=== PATIENT | male | born 1940 | race Caucasian/White ===

== ENCOUNTER 2018-03-20 08:45 | Inpatient (IN) | payer OTHER ==
[2018-03-08 08:52] LABS: HEMATOCRIT 43.5 % (42.0-52.0); HEMOGLOBIN 14.6 gm/dL (14.0-18.0); MCH 29.6 pg (26.0-34.0); MCHC 33.5 g/dL (28.0-37.0); MCV 88.4 fL (80.0-100.0); MPV 8.5 fl. (7.2-11.1); RBC 4.92 mil/uL (4.50-6.00); RDW-CV 13.9 % (10.5-14.5); WBC 8.5 thou/uL (4.0-11.0)
[2018-03-08 09:11] LABS: INR 1.1; PROTIME 10.4 Seconds (9.20-11.50)
[2018-03-08 09:12] LABS: CALCIUM 9.8 mg/dL (8.5-10.1); POTASSIUM 3.9 mmol/L (3.5-5.1); TOTAL BILIRUBIN 0.4 mg/dL (<0.1-1.0); TOTAL PROTEIN 7.7 g/dL (6.4-8.2)
[2018-03-08 10:14] LABS: URINE BILIRUBIN NEGATIVE (Negative); URINE BLOOD NEGATIVE (Negative); URINE CLARITY CLEAR; URINE COLOR YELLOW; URINE GLUCOSE-RANDOM NEGATIVE (Negative); URINE KETONES NEGATIVE (Negative); URINE LEUKOCYTES-REFLEX NEGATIVE (Negative); URINE NITRITE-REFLEX NEGATIVE (Negative); URINE PROTEIN NEGATIVE (Negative); URINE SPECIFIC GRAVITY 1.025 (1.005-1.030); URINE UROBILINOGEN 0.2 E.U./dl (0.2-1.0)
--- NOTE | 2018-03-08 16:35 | EKG ---
[place] [address] ELECTROCARDIOGRAM REPORT Name: MAMIE HOYOS Room: PRE IN ..#: [id number] Admission: Attend Phys: Bennett Gonzalez Discharge: Date of : 38 Report #: [id number] THIS REPORT FOR: //name// [facility] Test Date: 2018-03-08 Test Time: 09:07:05 Pat Name: MAMIE HOYOS Department: Room: Gender: M Manager Health: : 1940 Requested By: Ryan Amaral Order Number: [id number] Reading MD: Leonel Wolfe Measurements Intervals [place] Rate: 68 P: 77 KS: 208 QRS: -37 QRSD: 107 T: QT: 402 QTc: 428 Interpretive Statements Sinus rhythm Left axis deviation Borderline repolarization abnormality No previous ECG available for comparison Electronically Signed On 03-08-2018 16:35:22 CDT by Leonel Wolfe [email or web address] <ELECTRONICALLY SIGNED> By: Leonel Wolfe MD, [facility] 03/08/18 1635 0907 0907 Leonel Wolfe MD, FACC /EPI
[~2018-03-20] VITALS: Ht 185.4 cm; Wt 106.1 kg
[~2018-03-20 08:45] MED LIST: ASPIRIN325 PO; CARDIZEM60 MG PO; DIGOXIN250 MCG PO; ELIGARD22.5 MG SUBQ; FLOMAX0.4 MG PO; GLUCOSAMINE-CH480 M1 PO; KLOR-CON 1010 MEQ PO; LASIX 20 MG TAB20 MG PO; LISINOPRIL5 MG PO; MAGNESIUM PO; NAPROSYN500 MG PO; NORVASC5 MG PO; OMEGA-31000 M1 PO; OMEPRAZOLE 20 M20 M1 PO; SYNTHROID50 MCG PO; SYNTHROID75 MCG PO; TRAMADOL 50 MG50 MG PO; VITAMIN A PO; [UNRECOGNIZED DRUG - OTHER] PO; [UNRECOGNIZED DRUG - OTHER] PO
[2018-03-20 10:36] VITALS: BP 115/79
[2018-03-20 16:21] VITALS: BP 95/54
--- NOTE | 2018-03-20 17:15 | NUR ---
RECEIVED REPORT. PT TRANSFERRED TO ROOM 219. VSS-BP SOFT. CARDIAC MONTIORING IN PLACE AFIB WITH RATE IN THE 60-70'S. PT ON 3L PER NC. IVF INITIATED. PT DENIES ANY PAIN AT THIS TIME. DRESSING TO RIGHT HIP C/D/I. HEMO VAC AND JET IN PLACE. SCD FOOT PUMPS IN PLACE BILATERALLY. CAPNO IN PLACE. DEON HOSE IN PLACE. PT DENEIS ANY COMPLAITNS OF PAIN. PT OREITNED TO ROOM AND CALL LIGHT. REASSESSMENT COMPLETED CHARTED. CALL LIGHT IS WITHIN REACH. WILL CONTINUE TO MONITOR FOR DURAITON OF SHIFT.
[2018-03-20 20:00] VITALS: BP 102/58
[2018-03-20 23:36] VITALS: BP 102/50
[2018-03-21 04:00] VITALS: BP 125/62
--- NOTE | 2018-03-21 05:31 | NUR ---
PT CARE ASSUMED AFTER REPORT. ASSESSMENT COMPLETE. AFIB/AFLUTTER ON MONITOR. AMIDODERONE GTT AT 33ML/H. IVF INFUSING. HEMOVAC AND JET DRAIN INTACT AND FUNCTIONING. DRESSING TO L HIP C/D/I. ICE PACK IN PLACE. CAPNOGRAPHY IN PLACE. O2 3L NC. PRN PAIN MEDICATION GIVEN PER PT REQUEST. FALL PRECAUTIONS IN PLACE INCLUDING BED ALARM. CALL LIGHT IN REACH. BED IN LOWEST POSITION. PROGRESSING TOWARDS GOALS.
[2018-03-21 05:53] LABS: HEMATOCRIT 34.9 % (42.0-52.0)
[2018-03-21 08:00] VITALS: BP 126/61
--- NOTE | 2018-03-21 08:15 | NUR ---
RECEIVED REPORT. ASSUMED CARE OF PT AT 0730. VSS. CARDIAC MONITORING IN PLACE AFIB. AM ASSESSMENT AND VITALS COMPLETED CHARTED. PT ALERT AND ORIENTED X4. PT ON 2L PER NC. CAPNO IN PLACE. IVF INFUSING AND AMIO GTT INFUSING THIS AM. PT DENIES ANY COMPLAINTS OF PAIN THIS AM. DRESSING TO LEFT HIP C/D/I. HEMOVAC AND JET IN PLACE RED DRAINAGE. PT VOIDING PER URINAL. PT INFORMED OF PLAN OF CARE. PT COMMUNICATES UNDERSTANDING. CALL LIGHT IS WITHIN REACH. WILL CONTINUE TO MONITOR FOR DURAITON OF SHIFT.
--- NOTE | 2018-03-21 09:13 | EKG ---
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26 : 1940 Requested By: Marquise Varela Order Number: [id number] Tristan MD: Ej Stein Measurements Intervals [place] Rate: 44 P: AR: QRS: -35 QRSD: 110 T: 35 QT: 584 QTc: 500 Interpretive Statements Atrial fibrillation Left axis deviation Borderline prolonged QT interval Compared to ECG 03/08/2018 09:07:05 Sinus rhythm no longer present Electronically Signed On 03-21-2018 9:13:38 CDT by Ej Stein [email or web address] <ELECTRONICALLY SIGNED> By: Ej Stein MD, [facility] 03/21/18 0913 1436 1436 Ej Stein MD, [facility] /EPI
--- NOTE | 2018-03-21 09:15 | EKG ---
[place] [address] ELECTROCARDIOGRAM REPORT Name: MAMIE HOYOS Room: [address] ADM IN M.R.#: [id number] Admission: 03/20/18 Attend Phys: Bennett Gonzalez Discharge: Date of : 38 Report #: [id number] THIS REPORT FOR: //name// [facility] Test Date: 2018-03-20 Test Time: 20:28:19 Pat Name: MAMIE HOYOS Department: Room: [address] Gender: M Clearance Diver: [place]ET[place] : 1940 Requested By: Ej Stein Order Number: [id number] Tristan MD: Ej Stein Measurements Intervals [place] Rate: 66 P: MD: QRS: -37 QRSD: 112 T: 23 QT: 552 QTc: 579 Interpretive Statements Atrial fibrillation Borderline IVCD with LAD Abnormal R-wave progression, early transition Borderline T wave abnormalities Prolonged QT interval Compared to ECG 03/08/2018 09:07:05 T-wave abnormality now present Prolonged QT interval now present Sinus rhythm no longer present Left-axis deviation no longer present Electronically Signed On 03-21-2018 9:15:28 CDT by Ej Stein [email or web address] <ELECTRONICALLY SIGNED> By: Ej Stein MD, FACC 03/21/18914 27 27 Ej Stein MD, FAC /EPI
--- NOTE | 2018-03-21 09:48 | NUR ---
MET WITH PT.ON 03/08 AFTER PAC CLASS FOR PT.S. HE LIVES IN A MOBILE HOME,ALONE. 4 STEPS TO ENTER. HE IS NORMALLY INDEPENDENT. HE WALKS WITH A WALKER . HE DOES NOT HAVE SOMEONE TO STAY WITH HIM ALL THE TIME WHEN HE IS DISCHARGED. HE HAS A FRIEND,DUNCAN, THAT COULD COME DURING THE DAY TO HELP HIM IF NEEDED. NO ONE TO STAY DURING THE NIGHT. DISCUSSED POSSIBLE SNF AT DISCHARGE,DEPENDING HOW HE DOES WITH THERAPY. EXPLAINED HIS INSURANCE WILL NEED AUTHORIZE SNF STAY. GAVE HIM A LIST OF SNFS THAT CONTRACT WITH HIS INSURANCE. [facility] IS ON THE LIST. HE WAS SO HAPPY TO SEE THIS. IT IS RIGHT BY HIS HOME. HE WOULD LIKE A REFERRAL MADE THERE IF NEEDED. CM WILL FOLLOW FOR DISCHARGE.
[2018-03-21] MEDS ORDERED: DIGOXIN125 MCG PO (11:33)
[2018-03-21] MEDS ORDERED: HYDROCHLOROTH12.5 M1 PO (11:34)
[2018-03-21] MEDS ORDERED: DILTIAZEM HCL60 MG PO (11:34)
[2018-03-21 11:48] VITALS: BP 93/51
--- NOTE | 2018-03-21 13:23 | 2DMMODE ---
[place] [address] 2 D/M-MODE ECHOCARDIOGRAM Name: REESE HOYOS Room: [address] IN [facility]#: [id number] Admission: 03/20/18 Attend Phys: Reese Miller Discharge: Date of : 38 Date of Service: 03/21/18 1322 Report #: [id number] THIS REPORT FOR: //name// APPROVED REPORT Study performed: 03/21/2018 10:12:16 EXAM: Comprehensive 2D, Doppler, and color-flow Echocardiogram Patient Location: In-Patient Room #: 219 Status: routine BSA: 2.30 HR: 67 bpm BP: 126/61 mmHg Rhythm: Atrial Fibrillation Other Information Study Quality: Good Indications Atrial Fibrillation 2D Dimensions LVEF(%): 67.35 (>50%) IVSd: 13.68 (7-11mm) LVOT Diam: 23.90 (18-24mm) LVDd: 47.93 mm PWd: 10.65 (7-11mm) Ascending Ao: 36.95 (22-36mm) LVDs: 30.00 (25-40mm) Aortic Root: 35.31 mm Cuevas's LVEF: 67.35 % Volumes Left Atrial Volume (Systole) LA ESV Index: 26.00 mL/m2 Aortic Valve AoV Peak Arik.: 1.45 m/s AO Peak Gr.: 8.46 mmHg LVOT Max P.56 mmHg AO Mean Gr.: 4.35 mmHg LVOT Mean P.42 mmHg LVOT Max V: 1.18 m/s AO V2 VTI: 24.49 cm LVOT Mean V: 0.70 m/s FLAVIA (VTI): 3.70 cm2 LVOT V1 VTI: 20.22 cm Mitral Valve MV Decel. Time: 174.90 [place] [address] 2 D/M-MODE ECHOCARDIOGRAM Name: REESE HOYOS Room: [address] IN .R.#: [id number] Admission: 03/20/18 Attend Phys: Reese Miller Discharge: Date of : 38 Date of Service: 03/21/18 1322 Report #: [id number] MV PHT: 50.72 ms MVA (PHT): 4.34 cm2 TDI Medial E' Arik.: 0.19 m/s Lateral E' Arik.: 0.17 m/s Pulmonary Valve PV Peak Arik.: 0.97 m/s PV Peak Gr.: 3.80 mmHg Tricuspid Valve TR Peak Gr.: 30.79 mmHg RVSP: 35.00 mmHg Left Ventricle The left ventricle is normal size. There is normal LV segmental wall motion. There is normal left ventricular wall thickness. Left ventricular systolic function is normal. The left ventricular ejection fraction is within the normal range. LVEF is 55-60%. This study is not technically sufficient to allow evaluation of the LV diastolic function due to atrial fibrillation. Right Ventricle The right ventricle is normal size. The right ventricular systolic function is normal. Atria Left atrium is mildly dilated. The right atrium size is normal. Aortic Valve Mild aortic valve sclerosis. No aortic regurgitation is present. There is no aortic valvular stenosis. Mitral Valve The mitral valve is normal in structure. Trace mitral regurgitation. No evidence of mitral valve stenosis. Tricuspid Valve The tricuspid valve is normal in structure. Mild tricuspid regurgitation. The RVSP is 35-40 mmHg. Pulmonic Valve The pulmonary valve is normal in structure. Mild pulmonic regurgitation[place] [address] 2 D/M-MODE ECHOCARDIOGRAM Name: SOHAREESE Room: [address] IN [facility]#: [id number] Admission: 03/20/18 Attend Phys: Reese Miller Discharge: Date of : 38 Date of Service: 03/21/18 1322 Report #: [id number] The aortic root is normal in size. IVC is normal in size and collapses with >50% inspiration Pericardium There is no pericardial effusion. <Conclusion> The left ventricle is normal size. There is normal left ventricular wall thickness. Left ventricular systolic function is normal. The left ventricular ejection fraction is within the normal range. LVEF is 55-60%. This study is not technically sufficient to allow evaluation of the LV diastolic function due to atrial fibrillation. Left atrium is mildly dilated. The right atrium size is normal. Mild aortic valve sclerosis. No aortic regurgitation is present. There is no aortic valvular stenosis. The mitral valve is normal in structure. Trace mitral regurgitation. The tricuspid valve is normal in structure. Mild tricuspid regurgitation. The RVSP is 35-40 mmHg. IVC is normal in size and collapses with >50% inspiration There is no pericardial effusion. There is normal LV segmental wall motion. <ELECTRONICALLY SIGNED> By: Leonel Wolfe MD, FACC 03/21/18 132 21 21 Leonel Wolfe MD, FACC /INF
--- NOTE | 2018-03-21 15:29 | NUR ---
Faxed referral to [facility] for skilled, anticipate dc tomorrow. Following.
[2018-03-21 16:00] VITALS: BP 100/57
--- NOTE | 2018-03-21 16:39 | NUR ---
VSS. CARDIAC MONTIORING IN PLACE WITH NO CHANGES THIS SHIFT. PT PROGRESSING TOWARDS GOALS. PT TITRATED TO RA. IV SALINE LOCKED. PT UP IN [place] WITH PHYSICAL THERAPY THIS SHIFT. PT'S PAIN WELL MANAGED WITH PO PAIN MEDS. PLAN FOR PT TO DISCHARGE TOMORROW. PT INFORMED OF PLAN OF CARE. PT COMMUNCIATES UNDERSTANDING. CALL LIGHT IS WITHIN REACH. WILL CONTINUE TO MOTNIOR FOR DURATION OF SHIFT.
[2018-03-21 19:50] VITALS: BP 89/53
[2018-03-22] VITALS: BP 104/64
[2018-03-22 04:00] VITALS: BP 115/66
[2018-03-22 04:50] LABS: HEMATOCRIT 35.8 % (42.0-52.0); HEMOGLOBIN 12.1 gm/dL (14.0-18.0)
--- NOTE | 2018-03-22 06:18 | NUR ---
A&O X4. AFIB ON THE MONTOR. X1 ASSIST. RA. SEE MAR. SEE CHARTING. VITALS WNL. FALL PRECAUTIONS IN PLACE. HOURLY ROUNDING FOR SAFETY.
--- NOTE | 2018-03-22 07:30 | NUR ---
PATIENT CHANGE OF SHIFT BEDSIDE REPORT [facility]
[2018-03-22 08:00] VITALS: BP 106/57
--- NOTE | 2018-03-22 10:42 | NUR ---
Pt discharging to [facility] today, friend, [facility], will transport at 1300. Faxed dc orders. Chart copied. Nurse report number provided, . Updated nurse and Pt of disposition.
[2018-03-22 11:31] VITALS: BP 106/57
[2018-03-22 12:00] VITALS: BP 127/66
[2018-03-22] MEDS ORDERED: XARELTO20 MG PO (12:26)
[2018-03-22] MEDS ORDERED: PACERONE 200 M200 M1 PO (12:30)
[2018-03-22] MEDS ORDERED: ASPIR 8181 MG PO (12:45)
[2018-03-22] MEDS ORDERED: PERCOCET PO (12:49)
--- NOTE | 2018-03-22 13:57 | NUR ---
PATIENT DCD TO [facility] ALL DC INFO GIVEN, ACKNOWLEDGED, AND PAPERWORK COPYS GIVEN IV AND HEART MONITOR REMOVED PERSONAL BELONGINGS RETURNED PATIENT ASSISTED OUT VIA WC GOOD CONDITION TO WAITNG CAR
--- NOTE | 2018-03-26 12:50 | CON ---
[facility] [address] [place] [address] CONSULTATION Name: MAMIE HOYOS Room: [address] IN M.R.#: [id number] Admission: 03/20/18 Attend Phys: Bennett Gonzalez Discharge: 03/22/18 Date of : 38 Report #: [id number] THIS REPORT FOR: //name// CC: Ryan Miller INDICATION: New-onset atrial fibrillation. HISTORY OF PRESENT ILLNESS: The patient is a very pleasant 77-year-old gentleman who was electively brought into the hospital for left hip replacement. Surgery was uncomplicated. He was noted to be in atrial fibrillation postoperatively. He reports a history of paroxysmal supraventricular tachycardia remotely. At some time, I guess, they felt that he might have been in atrial fibrillation as well. Per his primary redye hand, his history is more of PSVT. He has a slow ventricular response to his atrial fibrillation. He is on rate-controlling medications, including digoxin and diltiazem. There is no history of coronary artery disease or myocardial infarction. PAST MEDICAL HISTORY: 1 Paroxysmal supraventricular tachycardia. 2. Hypothyroidism. 3. Dyslipidemia. 4. Mild chronic obstructive pulmonary disease. 5. Hypertension. 6. Diverticulosis. 7. Esophagitis. 8. 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 9. Mild pulmonary hypertension. 10. Prostate cancer. PAST SURGICAL HISTORY: 1. Submucous resection of nose for deviated septum. 2. Left varicocele. 3. Several prostate biopsies. 4. Cataract surgery. 5. Left hip replacement. FAMILY HISTORY: The patient's mother with dementia and heart disease. Father with a history of heart disease. SOCIAL HISTORY: The patient does not drink. Quit smoking in 1993. CURRENT MEDICATIONS: Amlodipine 5 mg daily, aspirin 325 mg daily, digoxin 0.25 mg daily, diltiazem 60 mg p.r.n., furosemide 20 mg daily, glucosamine chondroitin 480 mg daily, Eligard 22.5 mg shots subcutaneous every 6 months, [place] [address] CONSULTATION Name: MAMIE HOYOS Room: [address] IN ..#: [id number] Admission: 03/20/18 Attend Phys: Bennett Gonzalez Discharge: 03/22/18 Date of : 38 Report #: [id number] Synthroid 0.05 mg daily, lisinopril 5 mg daily, naproxen 500 mg b.i.d., fish oil 1000 mg q.i.d., omeprazole 20 mg daily, potassium chloride 10 mEq daily, Flomax 0.4 mg daily and tramadol 50 mg b.i.d. p.r.n. REVIEW OF SYSTEMS: A 14-point review of systems is positive for palpitations, occasional mild edema, hypothyroidism, prostate cancer, arthritis of the hips, decreased hearing and he wears dentures. Otherwise, 14-point review of systems was unremarkable. PHYSICAL EXAMINATION: VITAL SIGNS: Stable. Blood pressure is 95/54, pulse is in the 70s and irregular. GENERAL: This is a pleasant elderly gentleman, who is in no distress. Mood and affect appropriate. HEENT: The patient is wearing glasses. Extraocular muscles intact. Mucous membranes are moist. NECK: Examination of the neck shows no jugular venous distention. There are no carotid bruits. CHEST: Examination of the chest reveals clear lung [place]. CARDIAC EXAMINATION: Reveals a slightly irregular rhythm that is rate controlled. I do not appreciate gallop or murmur. ABDOMEN: Examination of the abdomen reveals normal bowel sounds. The abdomen is soft, nontender. EXTREMITIES: Examination of the extremities shows no edema. Peripheral pulses are 2+ and palpable. DIAGNOSTIC DATA: EKG shows atrial fibrillation with a slow ventricular response rate. There are no acute ST or T-wave abnormalities. LABORATORY DATA: Labs are reviewed. Sodium 140, potassium 3.9, chloride 101, bicarbonate 30, BUN 17, creatinine 1.0 and serum glucose 104. LFTs within normal limits. Coags within normal limits. White blood cell count 8.5, hemoglobin 14.6 and platelet count 192,000. IMPRESSION AND RECOMMENDATIONS: 1. New-onset atrial fibrillation. At this point, I will hold digoxin and diltiazem and start amiodarone bolus and drip in an effort to maintain sinus rhythm. At some point, we will need to start anticoagulation. We will hold off as the patient had hip surgery today. 2. History of paroxysmal supraventricular tachycardia without recent recurrence. I believe any form of antiarrhythmic we may choose will control his paroxysmal supraventricular tachycardia. 3. Hypertension, presently stable. 4. Dyslipidemia with no history of diabetes or coronary disease, follow clinically. [address] [address] CONSULTATION Name: MAMIE HOYOS Room: [address] IN M.R.#: [id number] Admission: 03/20/18 Attend Phys: Bennett Gonzalez Discharge: 03/22/18 Date of : 38 Report #: [id number] 5. Status post left hip replacement. The patient appears to be recovering in usual fashion. He appears comfortable. <ELECTRONICALLY SIGNED> By: Ej Stein MD, FACC 03/26/18 1250 1957 [id number] Stein MD, FACC /nt
--- NOTE | 2018-03-28 09:58 | OP ---
[facility] [address] [place] [address] OPERATIVE REPORT Name: MAMIE HOYOS Room: [address] IN M.R.#: [id number] Admission: 03/20/18 Attend Phys: Bennett Gonzalez Discharge: 03/22/18 Date of : 38 Report #: [id number] THIS REPORT FOR: //name// CC: Ryan Miller DATE OF SERVICE: 03/20/2018 PREOPERATIVE DIAGNOSIS: Left hip osteoarthritis. POSTOPERATIVE DIAGNOSIS: Left hip osteoarthritis. PROCEDURE: Left total hip arthroplasty. SURGEON: Ryan Amaral II, DO. REHABILITATION MEDICINE PHYSICIAN: SHANE Johnson. ANESTHESIA: General endotracheal. ESTIMATED BLOOD LOSS: 200 mL. ANTIBIOTICS: Ancef preoperatively. DRAINS: Medium Hemovac. COMPLICATIONS: None. CONDITION: Stable to recovery room. IMPLANTS: As in the operative note and progress note BRIEF HISTORY: The patient is seen in the preoperative area. Preoperative H and P was performed. The patient's site was marked. Questions were answered. Risks and benefits were discussed with the patient in detail about surgery. The patient wished to proceed and assumed all risks. DESCRIPTION OF PROCEDURE: The patient was taken to the operative suite, placed supine on the operating table under appropriate anesthesia. The patient's operative hip was placed in the [place] table leg vargas and sterilely prepped and draped in the supine position. Surgery began by longitudinal incision over the anterior portion of the hip. This was carried down to subcutaneous tissues. A small rohan was made in the tensor fascia. It was then split along its fibers and retracted laterally. H capsulotomy was performed, and careful hemostasis was obtained with electrocautery and Aquamantys. The head, neck cutting [address] [address] OPERATIVE REPORT Name: MAMIE HOYOS Room: [address] IN M.R.#: [id number] Admission: 03/20/18 Attend Phys: Bennett Gonzalez Discharge: 03/22/18 Date of : 39 Report #: [id number] alignment guide was checked with fluoroscopic guidance. Appropriate cut was made to the head, neck, and this was then removed. Attention was turned to the acetabulum. Excess labrum was removed. It was then reamed in sequential fashion up to appropriate size and showed to have excellent bleeding bone, excellent position under fluoroscopic guidance. The acetabular cup was then malleted in position and secured with cancellous screws. Metal liner was then applied. The patient's leg was then rotated and extended on the Leonela table to expose the femur. It was then broached in sequential fashion up to the appropriate size. The appropriate neck was then trialed with appropriate head length and showed to have excellent fit and fill with excellent stability of the hip with all range of motion. These trials were removed. The final stem was then malleted in position, and the final head and neck was then malleted in position. It was reduced in appropriate fashion, checked with the C-arm for appropriate leg length and showed to have excellent leg length throughout exam without evidence of dislocation upon range of motion and shuck testing. Wound was then copiously irrigated. Hemostasis was obtained with electrocautery and Aquamantys. Pain cocktail was injected. PRP gel was sprayed in the internal aspect of the hip. The drain was activated. H capsulotomy was closed using #1 Vicryl in [id number] fashion. Tensor fascia was closed with #1 Vicryl in running fashion. Skin was closed with 2-0 Vicryl and running 3-0 Monocryl with Dermabond. A sterile dressing applied. The patient transported to recovery room in stable condition. Counts were correct throughout the procedure. <ELECTRONICALLY SIGNED> By: Ryan Amaral II, DO 03/28/18 0958 0759 1056Ryan Amaral II, DO /nt
[2018-06-05] MEDS ORDERED: DIGOXIN125 MCG PO (10:34)
[2018-06-05] MEDS ORDERED: CARDIZEM60 MG PO (10:35)
== END 2018-03-22 15:00 | DRG 470 ==
LOC: M.SUR 08:45 → EDSTATUS 08:46 → M.PRE 08:47 → M.TBA 09:56 → M.2W 09:56 → M.PRE 10:00 → M.2W 16:03
PROVIDERS: Orthopaedic Surgery; ADMIT Internal Medicine
PROC: 0SRB0JZ Replacement of Left Hip Joint with Synthetic Substitute, Open Approach (ICD-10-PCS; principal; 2018-03-22)
DX: M16.12 Unilateral primary osteoarthritis, left hip (principal); I50.22 Chronic systolic (congestive) heart failure; E03.9 Hypothyroidism, unspecified; E78.5 Hyperlipidemia, unspecified; J44.9 Chronic obstructive pulmonary disease, unspecified; K57.90 Diverticulosis of intestine, part unspecified, without perforation or abscess without bleeding; I48.91 Unspecified atrial fibrillation; I11.0 Hypertensive heart disease with heart failure; K59.00 Constipation, unspecified; I95.9 Hypotension, unspecified; I27.20 Pulmonary hypertension, unspecified; Z96.642 Presence of left artificial hip joint; Z81.8 Family history of other mental and behavioral disorders; Z82.49 Family history of ischemic heart disease and other diseases of the circulatory system; Z85.46 Personal history of malignant neoplasm of prostate; Z87.891 Personal history of nicotine dependence; Z98.42 Cataract extraction status, left eye; Z98.41 Cataract extraction status, right eye

== ENCOUNTER 2018-06-12 06:09 | Inpatient (IN) | payer OTHER ==
[2018-06-05 10:27] LABS: URINE BILIRUBIN NEGATIVE (Negative); URINE BLOOD NEGATIVE (Negative); URINE CLARITY CLEAR; URINE COLOR YELLOW; URINE GLUCOSE-RANDOM NEGATIVE (Negative); URINE KETONES NEGATIVE (Negative); URINE LEUKOCYTES-REFLEX NEGATIVE (Negative); URINE NITRITE-REFLEX NEGATIVE (Negative); URINE PROTEIN NEGATIVE (Negative); URINE UROBILINOGEN 0.2 E.U./dl (0.2-1.0)
[2018-06-05 10:27] LABS: HEMATOCRIT 42.3 % (42.0-52.0); HEMOGLOBIN 14.3 gm/dL (14.0-18.0); MCH 29.4 pg (26.0-34.0); MCHC 33.8 g/dL (28.0-37.0); MPV 8.1 fl. (7.2-11.1); RBC 4.86 mil/uL (4.50-6.00); RDW-CV 15.5 % (10.5-14.5); WBC 8.7 thou/uL (4.0-11.0)
[2018-06-05 10:35] LABS: INR 1.3
[2018-06-05 10:39] LABS: CALCIUM 10.5 mg/dL (8.5-10.1); CREATININE 1.1 mg/dL (0.6-1.3); POTASSIUM 4.4 mmol/L (3.5-5.1); TOTAL BILIRUBIN 0.6 mg/dL (<0.1-1.0); TOTAL PROTEIN 7.7 g/dL (6.4-8.2)
[~2018-06-12] VITALS: Ht 185.4 cm; Wt 106.6 kg
[~2018-06-12 06:09] MED LIST changes: +ASPIR 8181 MG PO; +DIGOXIN125 MCG PO; +DILTIAZEM HCL60 MG PO; +HYDROCHLOROTH12.5 M1 PO; +PACERONE 200 M200 M1 PO; +PERCOCET PO; +XARELTO20 MG PO
[2018-06-12 07:39] VITALS: BP 105/63
[2018-06-12 11:49] LABS: MAGNESIUM 1.9 mg/dL (1.8-2.4); POTASSIUM 3.7 mmol/L (3.5-5.1)
[2018-06-12 12:30] VITALS: BP 147/70
[2018-06-12 16:00] VITALS: BP 112/93
--- NOTE | 2018-06-12 18:49 | NUR ---
PATIENT ADMITTED FROM PACU THIS AFTERNOON. RIGHT HIP DRESSING D/I, HEMOVAC IN PLACE. PATIENT RATING PAIN A 9/10 BUT FALLING ASLEEP DURING ASSESSMENT. [address], CAPNO IN PLACE. VITALS STABLE. DEON HOSE IN PLACE, SCD FOOT PUMPS MEREDITH. VOIDING PER URINAL. TOLERATING CARB DIET. PRN HYDROCODONE GIVEN X 1 THIS EVENING FOR PAIN. ORIENTED TO CALL LIGHT, CALL LIGHT WITHIN REACH, WILL CONTINUE TO MONITOR.
[2018-06-13] VITALS (7 sets, daily range): BP systolic 96–138; BP diastolic 49–67
[2018-06-13 04:52] LABS: HEMATOCRIT 36.9 % (42.0-52.0); HEMOGLOBIN 12.3 gm/dL (14.0-18.0)
--- NOTE | 2018-06-13 11:09 | EKG ---
[place] [address] ELECTROCARDIOGRAM REPORT Name: MAMIE HOYOS Room: [address] ADM IN M.R.#: [id number] Admission: 06/12/18 Attend Phys: Bennett Gonzalez Discharge: Date of : 38 Report #: [id number] THIS REPORT FOR: //name// [facility] Test Date: 2018-06-12 Test Time: 08:39:49 Pat Name: MAMIE HOYOS Department: Room: 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 : 1940 Requested By: Ej Garcia Order Number: [id number] Tristan MD: Ian Andre Measurements Intervals [place] Rate: 63 P: 44 WA: 221 QRS: -37 QRSD: 109 T: 2 QT: 416 QTc: 426 Interpretive Statements Sinus rhythm Prolonged WA interval Left axis deviation Borderline T wave abnormalities Baseline wander in lead(s) V5,V6 Compared to ECG 03/20/2018 20:28:19 Atrial fibrillation no longer present Prolonged QT interval no longer present T-wave abnormality still present Electronically Signed On 06-13-2018 11:09:29 CDT by Ian Andre [email or web address] <ELECTRONICALLY SIGNED> By: Ian Andre MD, [facility] 06/13/18 1109 0839 0839 Ian Andre MD, [facility] /EPI
--- NOTE | 2018-06-13 14:18 | NUR ---
CM SPOKE TO THE PATIENT TO DISCUSS HIS HOME SITUATIOND, DISCHARGE PLANNING, AND TO INFORM OF THE ROLE OF CM. PATIENT ALERT, ORIENTED, AND INDEPENDENT WITH ADL'S PRIOR TO ADMISSION. PATIENT RESIDES AT HOME ALONE, BUT INFORMS THAT HIS FRIEND DUNCAN IS ABLE TO ASSIST HIM IF NEEDED. PATIENT OWNS A CANE AND A WALKER. PATIENT HAS NO HX OF HH. PATIENT HAS A HX OF SNF AT [facility] AND HOPE TO RETURN THERE AT D/C FOR SKILLED. CM SPOKE TO COREY AT [facility] TO INFORM OF THE SKILLED REFERRAL AND FAXED PATIENT'S CLINICAL INFO. COREY WITH [facility] ADMISSION TO RETURN CALL TO INFORM OF ABILITY TO ACCEPT PATIENT AT D/C. CM WILL REMAIN AVAILABLE TO ASSIST AND FOLLLOW NEEDED.
--- NOTE | 2018-06-13 16:11 | NUR ---
PATIENT SITTING UP IN CHAIR THIS AM AND AFTERNOON. PT/OT THIS SHIFT, PATIENT AMBULATED IN HALLS. IV SL THIS SHIFT. [address], PATIENT DESATTED T0 88% ON RA. PRN HYDROCODONE GIVEN X 1 THIS SHIFT RIGHT BEFORE PT WORKED WITH PATIENT. VOIDING ADEQUATE AMOUNTS OF URINE PER URINAL. PROBABLE DISCHARGE TO [facility] TOMORROW.
[2018-06-14 03:55] LABS: HEMATOCRIT 36.6 % (42.0-52.0); HEMOGLOBIN 12.3 gm/dL (14.0-18.0)
[2018-06-14 04:17] VITALS: BP 108/56
--- NOTE | 2018-06-14 06:42 | NUR ---
PATIENT SLEPT PART OF THE NIGHT. IV REMAINS SALINE LOCKED. DRESSING TO RIGHT HIP REMAINS INTACT. PATIENT WAS GIVEN TYLENOL ONCE FOR A LOW GRADE TEMP OF 99.8 BUT WAS 98.7 THIS MORNING AND WAS GIVEN HYDROCODONE ONCE FOR PAIN. PATIENT IS SUPPOSED TO DC TO SKILLED FACILTY TODAY. WILL CONTINUE TO MONITOR.
[2018-06-14 08:30] VITALS: BP 106/59
[2018-06-14] MEDS ORDERED: FLOMAX0.4 MG PO (09:32)
[2018-06-14] MEDS ORDERED: LIDOCAINE1 EACH TRANSDERM (09:33)
--- NOTE | 2018-06-14 12:27 | NUR ---
CM RECIEVED A RETURN CALL FROM COREY AT [facility] AND SHE INFORMS THAT THE FACILLITY HAS RECIEVED INSURANCE AUTH [facility] IS ABLE TO ACCEPT THE PATIENT TODAY, AND WILL PROVIDE TRANSPORTATION AT 1400. CM SPOKE TO THE PATIENT TO INFORM OF THIS INFO AND HE IS IN AGREEMENT. CM INFORMED THE RN IN-CHARGE OF THE PATIENT OF THE FACILITIES ACCEPTANCE, TIME OF TRANSPORT, AND WHERE TO CALL REPORT. RN IN AGREEMENT. CM WILL REMAIN AVAILABLE TO ASSIST AND FOLLOW NEEDED.
[2018-06-14] MEDS ORDERED: PERCOCET 5-3251 EACH PO (13:20)
[2018-06-14] MEDS ORDERED: LIDOCAINE PAIN1 EACH TOP (13:21)
[2018-06-14 13:23] VITALS: BP 106/59
--- NOTE | 2018-06-14 13:23 | NUR ---
NATALIAY RECIEVED A CALL FROM MAURISIO AT [facility] AND SHE INFORMS THAT THE FACILITY IS ABLE TO ACCEPT THE PATIENT TODAY, AND WILL PROVIDE TRANSPORTATION AT 1400. CM FAXED [facility] PATIENTS D/C ORDERS. CM SPOKE TO THE PATIENT TO INFORM OF THIS AND HE IS IN AGREEMENT. NATALIYA SPOKE TO THE RN IN-CHARGE OF THE PATIENT TO INFORM OF THE FACILITIES ACCEPTANCE, TIME OF TRANSPORT, AND WHERE TO CALL REPORT. CM WILL REMAIN AVAILABLE TO ASSIST AND FOLLOW NEEDED.
[2018-06-14 13:24] VITALS: BP 106/59
[2018-06-14] MEDS ORDERED: SYNTHROID50 MCG PO (13:34)
--- NOTE | 2018-06-14 13:39 | NUR ---
NATALIYA RECIEVED A CALL FROM COREY AT [facility] AND SHE INFORMS THAT THE FACILITY IS ABLE TO ACCPET THE PATIENT TODAY, AND WILL PROVIDE TRANSPORTATION AT 1400. CM SPOKE TO THE PATIENT TO INFORM OF THIS INFO AND HE IS IN AGREEMENT. CM SPOKE TO THE RN TO INFORM OF THE FACILITIES ACCEPTANCE, TIME OF TRANSPORT, AND WHERE TO CALL REPORT. RN IN-AGREEMENT. CM WILL REMAIN AVAILABLE TO ASSIST AND FOLLOW NEEDED.
--- NOTE | 2018-06-14 13:54 | NUR ---
PATIENT HAS BEEN ALERT AND ORIENTED TODAY VERY PLEASANT. VITAL SIGNS HAVE BEEN STABLE ON ROOM AIR, SOME PAIN THAT IS CONTROLLED WITH ORAL PAIN MEDICATIONS. PATIENT TOLERATED THERAPY WELL TODAY. PATIENT IS BEING DISCHARGED TO [facility]. DISCHARGE INSTRUCTIONS GIVEN, PRESCRIPTIONS PLACED IN DISCHARGE PAPERWORK THAT IS SENT WITH THE TRANSPORTER. LEFT VIA WHEEL CHAIR. REPORT GIVEN TO
[2018-06-14 13:59] VITALS: BP 106/59
--- NOTE | 2018-06-20 22:46 | OP ---
[facility] [address] [place] [address] OPERATIVE REPORT Name: MAMIE HOYOS Room: [address] M.R.#: [id number] Admission: 06/12/18 Attend Phys: Bennett Gonzalez Discharge: 06/14/18 Date of : 38 Report #: [id number] THIS REPORT FOR: //name// CC: Ryan Miller DATE OF SERVICE: 06/12/2018 PREOPERATIVE DIAGNOSIS: Right hip osteoarthritis. POSTOPERATIVE DIAGNOSIS: Right hip osteoarthritis. PROCEDURE: Right total hip arthroplasty. SURGEON: Ryan Amaral II, DO. MITTEN SEWER: SHANE Johnson ANESTHESIA: General endotracheal. ESTIMATED BLOOD LOSS: 250 mL. ANTIBIOTICS: Ancef preoperatively. DRAINS: Medium Hemovac. COMPLICATIONS: None. CONDITION: The patient stable to recovery room. IMPLANTS: Listed in operative record and progress note. BRIEF HISTORY: The patient was seen in the preoperative area. Preoperative H and P was performed. Site was marked, questions were answered. Risks and benefits were discussed with the patient in detail about the surgery. The patient wished to proceed and assumed all risks. DESCRIPTION OF PROCEDURE: The patient was taken to the operative room and placed supine on the operating table and given appropriate anesthesia. The patient's affected operative hip was placed in the [place] table leg vargas and sterilely prepped and draped in the supine position. Surgery began by longitudinal incision over the anterior portion of the hip. This was carried down to the subcutaneous tissues. A small rohan was made in the tensor fascia. It was then split in line with its fibers and retracted laterally. An H capsulotomy was then performed and careful hemostasis was maintained throughout [address] [address] OPERATIVE REPORT Name: MAMIE HOYOS Room: [address] M.R.#: [id number] Admission: 06/12/18 Attend Phys: Bennett Gonzalez Discharge: 06/14/18 Date of : 38 Report #: [id number] the capsule with electrocautery and Aquamantys. The head and neck cutting alignment guide was then checked with fluoroscopic guidance. An appropriate cut was made to the head and neck and this was removed. Attention was then turned to the acetabulum. Excess labrum was removed. It was then reamed in sequential fashion up to the appropriate size. This showed an excellent bleeding bone, excellent position on fluoroscopic guidance. The acetabular cup was malleted into position and secured with cancellous screws. A metal liner was then applied. The patient's leg was then rotated and extended on the [place] table to expose the femur. It was then broached in sequential fashion up to the appropriate size. The appropriate neck was then trialed with appropriate head length and shown to have excellent fit and fill and excellent stability of the hip through all range of motion. These trials were removed. The final stem was then malleted in position and a final head and neck was then malleted into position. It was reduced in appropriate fashion, checked with C-arm for appropriate leg length, showed excellent leg length throughout the exam without evidence of dislocation upon range of motion and shuck testing. The wound was then copiously irrigated. Hemostasis was obtained with electrocautery and Aquamantys. The pain cocktail was injected. PRP gel was sprayed throughout the internal aspect of the hip and the drain was activated. The H-capsulotomy was closed with #1 Vicryl in [id number] fashion. The tensor fascia was closed with #1 Vicryl in a running fashion. Skin was closed with 2-0 Vicryl and running 3-0 Monocryl. Dermabond dressing applied. The patient transported to recovery room in stable condition. Counts were correct throughout the procedure. <ELECTRONICALLY SIGNED> By: Ryan Amaral II, DO 06/20/18 [id number] Amaral II, DO /nt
== END 2018-06-14 15:03 | DRG 470 ==
LOC: M.PRE 06:09 → M.TBA 06:43 → M.3W 06:43 → M.PRE 07:35 → M.TBA 11:24 → M.3W 12:28 → M.PRE 15:38 → M.3W 06-14 15:03
PROVIDERS: Internal Medicine; Orthopaedic Surgery; ADMIT Internal Medicine
PROC: 0SR903A Replacement of Right Hip Joint with Ceramic Synthetic Substitute, Uncemented, Open Approach (ICD-10-PCS; principal; 2018-06-12)
DX: M16.11 Unilateral primary osteoarthritis, right hip (principal); J44.9 Chronic obstructive pulmonary disease, unspecified; I10 Essential (primary) hypertension; K59.00 Constipation, unspecified; Z96.642 Presence of left artificial hip joint; I48.91 Unspecified atrial fibrillation; Z79.899 Other long term (current) drug therapy; Z88.8 Allergy status to other drugs, medicaments and biological substances; Z98.42 Cataract extraction status, left eye; Z98.41 Cataract extraction status, right eye; Z85.46 Personal history of malignant neoplasm of prostate; Z87.891 Personal history of nicotine dependence